=== PATIENT | male | born 1965 | race African-American/Black ===

== ENCOUNTER 2017-07-21 11:06 | Inpatient (IN) | END 2017-07-23 10:10 | disposition home or self-care (01) | DRG 607 | DX: A63.0 Anogenital (venereal) warts (principal); I10 Essential (primary) hypertension; Z21 Asymptomatic human immunodeficiency virus [HIV] infection status; F17.210 Nicotine dependence, cigarettes, uncomplicated; F10.10 Alcohol abuse, uncomplicated; F12.90 Cannabis use, unspecified, uncomplicated ==